=== PATIENT | female | born 1960 | race African-American/Black ===

== ENCOUNTER 2019-12-02 16:10 | Inpatient (IN) | payer OTHER ==
[~2019-12-02] VITALS: Ht 165.1 cm; Wt 89.8 kg
[2019-12-02] MEDS ORDERED: MAGNESIUM HYDROXIDE 30 ML UDC PO PRN (21:30)
[2019-12-02] MEDS ORDERED: LORAZEPAM 0.5 MG TABLET PO PRN (21:30)
[2019-12-02] MEDS ORDERED: BLOOD SUGAR DIAGNOSTIC 1 EACH STRIP IN ONE (22:00)
[2019-12-02] MEDS ORDERED: ROSU10TA2 PO (23:14)
[2019-12-02] MEDS ORDERED: LURA80TA PO (23:19)
[2019-12-02] MEDS ORDERED: ACET500C4 PO ×2 (23:19)
[2019-12-02] MEDS ORDERED: GABA600T12 PO (23:19)
[2019-12-02] MEDS ORDERED: DILT-4 PO (23:24)
[2019-12-02] MEDS ORDERED: TOPI200T PO (23:24)
[2019-12-02] MEDS ORDERED: ALBU18HF2 INH (23:24)
[2019-12-02] MEDS ORDERED: HYDR12.55 PO (23:24)
[2019-12-02] MEDS ORDERED: MONT10TA22 PO (23:29)
[2019-12-02] MEDS ORDERED: DICL100G34 TP (23:29)
[2019-12-02] MEDS ORDERED: SERT100T PO (23:29)
[2019-12-03] MEDS ORDERED: ALBUTEROL SULFATE INH 18 GM HFA.AER.AD IH PRN (00:30)
[2019-12-03 01:06] VITALS: BP 154/92
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
[2019-12-03] MEDS ORDERED: LISI10TA5 PO (07:49)
[2019-12-03 08:00] VITALS: BP 138/99
[2019-12-03] MEDS: MONTELUKAST SODIUM (10MG) 10 MG TABLET PO SCH (08:07)
[2019-12-03] MEDS: DILTIAZEM HCL CD 240 MG PO SCH (08:07)
[2019-12-03 08:23] LABS: EOSINOPHILS % (AUTO) 4.5 % (0.0-6.0); HEMATOCRIT 37 % (33-45); HEMOGLOBIN 12.3 g/dL (11.5-14.8); LYMPHOCYTES # (AUTO) 1.5 /CMM (0.8-4.8); LYMPHOCYTES % (AUTO) 37.9 % (20.0-44.0); MEAN CORPUSCULAR HGB CONC 33 g/dl (31.0-36.0); MEAN CORPUSCULAR VOLUME 99 fL (82-100); MONOCYTES # (AUTO) 0.4 /CMM (0.1-1.30); MONOCYTES % (AUTO) 9.9 % (2.0-12.0); NEUTROPHILS # (AUTO) 1.8 /CMM (1.8-8.9); NEUTROPHILS % (AUTO) 46.7 % (43.0-81.0); PLATELET COUNT (AUTO) 193 /CMM (150-450); WHITE BLOOD COUNT (AUTO) 3.9 K/uL (4.3-11.0)
[2019-12-03] MEDS ORDERED: DICLOFENAC TOPICAL 100 GM GEL..GM. TP SCH (08:30)
[2019-12-03] MEDS: HYDROCHLOROTHIAZIDE 25 MG TABLET PO SCH (08:43)
[2019-12-03] MEDS: GABAPENTIN 300 MG CAPSULE PO SCH ×3 (08:44→16:07)
[2019-12-03] MEDS: LISINOPRIL (10MG) 10 MG TABLET PO SCH (08:44)
[2019-12-03 09:00] LABS: CALCIUM, SERUM 8.7 mg/dL (8.5-10.1); CREATININE 0.8 mg/dL (0.6-1.3); POTASSIUM 3.5 mmol/L (3.5-5.1)
[2019-12-03] MEDS ORDERED: TOPIRAMATE 100 MG TABLET PO SCH ×2 (09:00→21:00)
[2019-12-03] MEDS ORDERED: HYDROCHLOROTHIAZIDE 12.5 MG CAPSULE PO SCH (09:00)
--- NOTE | 2019-12-03 09:54 | NUR ---
Dr. Waldron as the lpn medical assistant of the unit gave an order for denial of right to do room search to look for the missing shower head with the hose. Staffs made a thorough search and the thing that we are looking is not in the room.
--- NOTE | 2019-12-03 10:11 | NUR ---
GPS RN NOTE: RECEIVED PT IN THE ROOM SITTING IN BED NO S/S DISTRESS NOTED PATIENT COMPLIANT WITH AM MEDICATIONS CALM AND COOPERATIVE DENIES SI/HI AT THIS TIME. ALL NEEDS MET AND UNANTICIPATED WILL CONTINUE MONITORING FOR SAFETY AND BEHAVIOR Q 15 MIN
--- NOTE | 2019-12-03 10:46 | NUR ---
[facility]: LISSETT spoke with Sp, Provider Relations Machine Setter Supervisor ([phone]) who stated pt has been referred by [facility], however facility did not receive pts insurance information. LISSETT re-faxed referral to [facility] . Per Sp, if pt denies suicidal ideation pt can have a bed by Friday12/06/19. LISSETT faxed referral on this present day.
[2019-12-03] MEDS: SERTRALINE HCL 25 MG TABLET PO SCH (12:55)
[2019-12-03] MEDS: ARIPIPRAZOLE 5 MG TABLET PO SCH ×2 (12:55→16:07)
[2019-12-03] MEDS: ACETAMINOPHEN 325 MG TABLET PO PRN (12:56)
--- NOTE | 2019-12-03 13:49 | NUR ---
INITIAL DISCHARGE PLAN: Per pt she wishes to be transferred to [facility] Address: [address] [place] [address] . LISSETT will help form a safe and proper discharge plan in collaboration with .
--- NOTE | 2019-12-03 14:00 | NUR ---
SHIP'S CARPENTER: LISSETT contacted Keily Stark pts FSP therapist [phone] and left a voicemail for callback to discuss pts treatment plan.
[2019-12-03 15:56] VITALS: BP 142/88
--- NOTE | 2019-12-03 16:12 | NUR ---
FINANCIAL RECRUITER: LISSETT received a call from Keily Stark pts P therapist [phone]. LISSETT informed her that pt was currently on a 5150 hold and LISSETT also stated that she has already faxed a referral to [facility] and is waiting for bed availability. Keily requested LISSETT call her next week with an update.
--- NOTE | 2019-12-03 19:20 | NUR ---
RN NOTES: PT. RESTING IN HER ROOM , ISOLATIVE ,DISORGNIZED EASILY AGITATED , ALL NEEDS ATTENDED ANTICIPATED, ENCOURAGED PT. TO VERBALIZED ANY FEELING , NO ACUTE DISTRESS NOTED , NEEDS FREQUENTLY REDIRECTIONS , REALITY ORIENTIONS PROVIDED, WILL CONTINUITY WITH CARE.
[2019-12-03] MEDS: TOPIRAMATE 100 MG TABLET PO SCH (20:49)
[2019-12-03] MEDS: ATORVASTATIN 40 MG TABLET PO SCH (21:06)
[2019-12-03] MEDS ORDERED: ALBUTEROL FS 2.5 MG/0.5 ML VIAL.NEB NEB PRN (23:00)
[2019-12-04] MEDS: ACETAMINOPHEN 325 MG TABLET PO PRN ×2 (06:52→17:55)
[2019-12-04 08:00] VITALS: BP 104/78
[2019-12-04] MEDS: ARIPIPRAZOLE 5 MG TABLET PO SCH ×3 (08:23→16:21)
[2019-12-04] MEDS: TOPIRAMATE 100 MG TABLET PO SCH ×2 (08:24→21:17)
[2019-12-04] MEDS: SERTRALINE HCL 25 MG TABLET PO SCH (08:24)
[2019-12-04] MEDS: GABAPENTIN 300 MG CAPSULE PO SCH ×3 (08:24→16:21)
[2019-12-04] MEDS: MONTELUKAST SODIUM (10MG) 10 MG TABLET PO SCH (08:24)
[2019-12-04] MEDS: LISINOPRIL (10MG) 10 MG TABLET PO SCH (08:26)
[2019-12-04] MEDS: HYDROCHLOROTHIAZIDE 25 MG TABLET PO SCH (08:27)
[2019-12-04] MEDS: DILTIAZEM HCL CD 240 MG PO SCH (08:28)
[2019-12-04 16:00] VITALS: BP 98/71
--- NOTE | 2019-12-04 18:00 | NUR ---
gps/rn-notes Patient requesting Tylenol for both legs pain. Tylenol 650 mg p.o given as prn order. will cont. monitoring for safety.
--- NOTE | 2019-12-04 18:44 | NUR ---
GPS/RN-NOTES PATIENT LAYING IN BED,CALM NO ACUTE DISTRESS NOTED. DENIES ANY PAIN OR DISCOMFORT AT THIS TIME.
[2019-12-04 20:49] VITALS: BP 117/75
[2019-12-04] MEDS: ATORVASTATIN 40 MG TABLET PO SCH (21:17)
[2019-12-05 08:00] VITALS: BP 112/83
[2019-12-05] MEDS: MONTELUKAST SODIUM (10MG) 10 MG TABLET PO SCH (08:49)
[2019-12-05] MEDS: TOPIRAMATE 100 MG TABLET PO SCH ×2 (08:49→21:01)
[2019-12-05] MEDS: ARIPIPRAZOLE 5 MG TABLET PO SCH ×3 (08:49→16:53)
[2019-12-05] MEDS: ACETAMINOPHEN 325 MG TABLET PO PRN ×2 (08:49→15:13)
[2019-12-05] MEDS: GABAPENTIN 300 MG CAPSULE PO SCH ×3 (08:50→16:53)
[2019-12-05] MEDS: SERTRALINE HCL 25 MG TABLET PO SCH (08:50)
[2019-12-05] MEDS: DILTIAZEM HCL CD 240 MG PO SCH (08:50)
[2019-12-05] MEDS: HYDROCHLOROTHIAZIDE 25 MG TABLET PO SCH (08:50)
[2019-12-05] MEDS: LISINOPRIL (10MG) 10 MG TABLET PO SCH (08:50)
--- NOTE | 2019-12-05 10:40 | NUR ---
GPS RN NOTE: RECEIVED PT IN THE ROOM SITTING IN BED. NO S/S DISTRESS. NOTED PATIENT COMPLIANT WITH AM MEDICATIONS CALM AND COOPERATIVE DENIES SI/HI AT THIS TIME. C/O PAIN IN LEGS. PRN MEDICATION OFFERED AND ADMINISTERED. ALL NEEDS MET. WILL CONTINUE MONITORING Q15 FOR MOOD, SAFETY AND BEHAVIOR
[2019-12-05] MEDS: MAG HYDROX/AL HYDROX/SIMETH 30 ML UDC PO PRN ×2 (12:39→18:03)
[2019-12-05 16:00] VITALS: BP 125/65
[2019-12-05 20:19] VITALS: BP 95/63
[2019-12-05] MEDS: ATORVASTATIN 40 MG TABLET PO SCH (21:35)
[2019-12-05] MEDS: TEMAZEPAM 7.5 MG CAPSULE PO PRN (21:36)
--- NOTE | 2019-12-06 06:01 | NUR ---
GPS RN NOTES PT REFUSED SKIN CHECK. STATES SHE HAD HER SKIN CHECKED ON ADMISSION AND DOES NOT TO BE CHECKED AGAIN. WILL CONTINUE TO MONITOR PT.
[2019-12-06] MEDS: ACETAMINOPHEN 325 MG TABLET PO PRN ×2 (06:11→13:36)
[2019-12-06 08:00] VITALS: BP 119/73
[2019-12-06] MEDS: MONTELUKAST SODIUM (10MG) 10 MG TABLET PO SCH (08:18)
[2019-12-06] MEDS: GABAPENTIN 300 MG CAPSULE PO SCH ×3 (08:19→17:11)
[2019-12-06] MEDS: HYDROCHLOROTHIAZIDE 25 MG TABLET PO SCH (08:19)
[2019-12-06] MEDS: ARIPIPRAZOLE 5 MG TABLET PO SCH ×3 (08:19→17:11)
[2019-12-06] MEDS: DILTIAZEM HCL CD 240 MG PO SCH (08:19)
[2019-12-06] MEDS: TOPIRAMATE 100 MG TABLET PO SCH ×2 (08:20→21:36)
[2019-12-06] MEDS: SERTRALINE HCL 25 MG TABLET PO SCH (08:20)
[2019-12-06] MEDS: LISINOPRIL (10MG) 10 MG TABLET PO SCH (08:20)
--- NOTE | 2019-12-06 08:58 | NUR ---
UR NOTE: AUTHORIZATION#[id number]. LISSETT faxed clinicals to FAX# [phone] for review.
--- NOTE | 2019-12-06 13:32 | NUR ---
UR NOTE: SW received a voicemail from Ofelia, disability case manager at [facility] ([phone]) requesting pts legal status. SW returned the call and left a voicemail providing her with pts legal status.
--- NOTE | 2019-12-06 14:30 | NUR ---
gps allergy and immunology chief: psychiatrist f/u seen by dr. valladares at this time. no new order.
--- NOTE | 2019-12-06 15:00 | NUR ---
INDIVIDUAL MEETING: LISSETT met with pt to assess for suicidality. Pt states she is feeling less suicidal but still has thoughts "here and there." She states that she is concerned about her cat as she does not know who is feeding her or taking care of her. LISSETT informed her that she will contact Keily, spring encaser with the [employer] to ask about her cat.
--- NOTE | 2019-12-06 15:22 | NUR ---
PAN DEVULCANIZER: LISSETT contacted Keily Stark pts FSP therapist with the [employer] [phone] to inform her pt is concerned about her cats well-being. She states that pts neighbor is taking care of pts cat until pt is finished with her treatment.
--- NOTE | 2019-12-06 15:24 | NUR ---
INDIVIDUAL MEETING: SW informed pt that her neighbor Marlene is taking care of her cat. Pt became happy.
[2019-12-06 16:00] VITALS: BP 122/70
[2019-12-06 21:00] VITALS: BP 100/55
[2019-12-06] MEDS: TEMAZEPAM 7.5 MG CAPSULE PO PRN (21:37)
[2019-12-06] MEDS: ATORVASTATIN 40 MG TABLET PO SCH (21:37)
[2019-12-07] MEDS: ACETAMINOPHEN 325 MG TABLET PO PRN ×2 (06:23→13:15)
--- NOTE | 2019-12-07 06:25 | NUR ---
GPS RN NOTE PT WOKE UP AROUND 0615 ASKING FOR TYLENOL FOR KNEE PAIN. RATES PAIN /. TYLENOL 325MG 2 TABS/650MG GIVEN PO. PT IN ROOM LAYING IN BED. NO S/S OF ACUTE DISTRESS, A/O X3. NO BEHAVIORAL ISSUES. WILL CONTINUE TO MONITOR AND ENDORSE TO AM SHIFT.
[2019-12-07 08:00] VITALS: BP 113/70
[2019-12-07] MEDS: HYDROCHLOROTHIAZIDE 25 MG TABLET PO SCH (09:00)
[2019-12-07] MEDS: LISINOPRIL (10MG) 10 MG TABLET PO SCH (09:00)
[2019-12-07] MEDS: DILTIAZEM HCL CD 240 MG PO SCH (09:00)
[2019-12-07] MEDS: MONTELUKAST SODIUM (10MG) 10 MG TABLET PO SCH (09:32)
[2019-12-07] MEDS: TOPIRAMATE 100 MG TABLET PO SCH ×2 (09:32→20:52)
[2019-12-07] MEDS: ARIPIPRAZOLE 5 MG TABLET PO SCH ×3 (09:33→18:06)
[2019-12-07] MEDS: GABAPENTIN 300 MG CAPSULE PO SCH ×3 (09:33→18:07)
[2019-12-07] MEDS: SERTRALINE HCL 25 MG TABLET PO SCH (09:33)
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
--- NOTE | 2019-12-07 10:24 | NUR ---
UR NOTE: LISSETT faxed clinicals and 5150 and 2110 hold to Ofelia case packer and sealer at [facility] FAX# [phone] for review.
[2019-12-07] MEDS ORDERED: Z GUARD REMEDY 4 OZ OINT TP PRN (10:30)
--- NOTE | 2019-12-07 10:35 | NUR ---
UR NOTE: LISSETT received a call from Ofelia, case mgr at [facility] ([phone]) stating that [facility] does not cover inpatient rehabilitation and therefore will not cover pts rehab at [facility]. LISSETT informed her that pt will be discharged home tomorrow Friday12/08/19. Ofelia, agreed.
--- NOTE | 2019-12-07 12:45 | NUR ---
INDIVIDUAL MEETING: SW met with pt to assess for suicidality. Pt denied suicidal thoughts. SW informed her that her insurance is not covering her treatment at [facility] and pt stated she wished to be discharged home. SW informed her she will be discharged tomorrow Friday12/08/19 and pt agreed and asked SW to contact her therapist Keily for transportation.
--- NOTE | 2019-12-07 13:04 | NUR ---
VEST BASTER: LISSETT contacted Keily Lincoln pts FSP therapist [phone] to inform her pt will be discharged Friday12/08/19 back home due to her insurance not covering. Keily states she is unable to provide transportation due to her office being closed. LISSETT informed her that the hospital will arrange transportation for pt.
--- NOTE | 2019-12-07 13:15 | NUR ---
MEDICATED FOR LT. LEG PAIN WITH TYLENOL 650 MG PO.
[2019-12-07 16:00] VITALS: BP 125/71
[2019-12-07] MEDS: BACITRACIN/POLYMYXIN B 15 GM TUBE TP SCH (16:52)
[2019-12-07] MEDS: TEMAZEPAM 7.5 MG CAPSULE PO PRN (20:52)
[2019-12-07] MEDS: ATORVASTATIN 40 MG TABLET PO SCH (21:04)
[2019-12-07 21:24] VITALS: BP 118/82
[2019-12-08] MEDS: ACETAMINOPHEN 325 MG TABLET PO PRN (03:38)
--- NOTE | 2019-12-08 07:52 | NUR ---
Dr. Harrell gave an order to d/c hold and d/c home and to follow up with psych and medical doctors.
[2019-12-08 08:00] VITALS: BP 121/81
[2019-12-08] MEDS: TOPIRAMATE 100 MG TABLET PO SCH (08:40)
[2019-12-08] MEDS: MONTELUKAST SODIUM (10MG) 10 MG TABLET PO SCH (08:40)
[2019-12-08] MEDS: HYDROCHLOROTHIAZIDE 25 MG TABLET PO SCH (08:40)
[2019-12-08] MEDS: DILTIAZEM HCL CD 240 MG PO SCH (08:40)
[2019-12-08 08:41] VITALS: BP 121/81
[2019-12-08] MEDS: ARIPIPRAZOLE 5 MG TABLET PO SCH (08:41)
[2019-12-08] MEDS: LISINOPRIL (10MG) 10 MG TABLET PO SCH (08:41)
[2019-12-08] MEDS: GABAPENTIN 300 MG CAPSULE PO SCH ×2 (08:41→12:40)
[2019-12-08] MEDS: SERTRALINE HCL 25 MG TABLET PO SCH (08:43)
[2019-12-08] MEDS: BACITRACIN/POLYMYXIN B 15 GM TUBE TP SCH (08:49)
--- NOTE | 2019-12-08 09:15 | NUR ---
UR NOTE: SW contacted Ofelia, piano case and bench assembler at [facility] ([phone]) to request IOP referrals. She states that she will contact pt once discharged to provide her with IOP referrals. She also provided SW with aftercare appotientments for pt.
--- NOTE | 2019-12-08 09:31 | NUR ---
UR NOTE: LISSETT contacted Ofelia, nurse outreach case manager at [facility] ([phone]) to request IOP referrals. She states that she will contact pt once discharged to provide her with IOP referrals. She also provided SW with aftercare appointments for pt with therapist JERRELL Hernandez on 12/14/19 at 8:30am and with Nurse Practitioner Fabian for medication management on 12/31/19 at 8:30am both located at [facility] [facility] [address] [place] [address] .
--- NOTE | 2019-12-08 09:35 | NUR ---
DISCHARGE NOTE: Pt will be discharged at 2:00pm via [facility] [address] [place] [address]. Pt has no family to notify. Keily Stark pts FSP therapist [phone] has been notified. Pts mood is euthymic with congruent affect. Pt denied visual/auditory hallucinations and denied suicidal/homicidal ideation. Pt will follow up with [facility] [address] [address] Hagen [address] [id number] . Pt also has aftercare appointments with therapist JERRELL Hernandez on 12/14/19 at 8:30am and with Nurse Practitioner Fabian for medication management on 12/31/19 at 8:30am both located at [address] [place] [address] . Patient was referred to the [address] [address] / and was encouraged to present at 9am on Sunday December 22, 2019 when pts insurance switches to Medicare/Medical. Additional resources included [facility] [address] [place] [address] and [facility] [address] [place] [address] . The multidisciplinary exit care form was done, printed, signed, and given to the patient.
--- NOTE | 2019-12-08 10:10 | NUR ---
GPS/RN-NOTES RECEIVED VERBAL ORDER FROM DR. KAN TO D/C ABILIFLizandro 5MG P.O BID. NOTED AND CARRIED OUT.
--- NOTE | 2019-12-08 14:20 | NUR ---
GPS/RN-NOTES PATIENT DISCHARGE TO HOME TODAY. DR. KAN AND HONEY BLENDER JAZZY AWARE AND AGREES OF PATIENT DISCHARGE WITH ORDERS. PATIENT DID NOT VERBALIZE SI/HI,DENIES VISUAL/AUDITORY HALLUCINATIONS AT THE TIME OF DISCHARGE. ALL DISCHARGE MEDICATIONS WAS REVIEWED WITH THE PATIENT WITH UNDERSTANDING. RX WAS GIVEN TO HER . PATIENT SIGN ALL DISCHARGE PAPERS. REFUSED FULL BODY ASSESSMENT PRIOR TO DISCHARGE STATED" I DON'T HAVE ANY PROBLEMS WITH MY SKIN OR BODY". INSTRUCTED PATIENT TO CALL 911 OR GO TO THE NEAREST EMERGENCY ROOM IN CASE OF EMERGENCY AND FOLLOW UP WITH PCP AND PSYCHIATRIST IN A WEEK. PATIENT LEFT THE UNIT WITH ALL BELONGINGS INCLUDING OWN MEDICATIONS,WALKER AND OTHER BELONGINGS, SHE IS ALERT ORIENTED X3, ABLE TO AMBULATE USING WALKER. PATIENT WAS WHEELED BY ONE STAFF IN THE LOBBY FOR SAFETY. PATIENT LEFT VIA [facility]. NO FAMILY TO NOTIFY ON THE DISCHARGE.
--- NOTE | 2019-12-09 11:52 | NUR ---
UR NOTE: LISSETT faxed discharge clinicals to Ofelia showcase maker at [facility] FAX# [phone] for review.
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
== END 2019-12-08 14:20 | disposition home or self-care (01) | DRG 885 ==
LOC: GPS 20:11
PROVIDERS: ADMIT Psychiatry & Neurology Psychiatry; ATTEND Internal Medicine
DX: F25.0 Schizoaffective disorder, bipolar type (principal); F23 Brief psychotic disorder; R45.851 Suicidal ideations; F32.9 Major depressive disorder, single episode, unspecified; J45.909 Unspecified asthma, uncomplicated; I10 Essential (primary) hypertension; F41.9 Anxiety disorder, unspecified; M19.90 Unspecified osteoarthritis, unspecified site; M62.81 Muscle weakness (generalized); F19.10 Other psychoactive substance abuse, uncomplicated; E78.5 Hyperlipidemia, unspecified
CPT/HCPCS: 36415; 80048-TC; 80061-TC; 82962-TC; 85025-TC; 87081-TC; 97116-TC; 97530-TC